=== PATIENT | male | born 1960 | race Caucasian/White ===

== ENCOUNTER 2021-06-23 10:40 | Emergency (ER) | payer MEDICARE ==
[2021-06-23 11:17] LABS: BASOPHIL 0.4 % (0-2); EOSINOPHIL 0.2 % (0-5); HCT 41.8 % (42.0-52.0); HGB 13.8 g/dl (13.2-18.0); LYMPHOCYTE 36.1 % (15-48); MCH 29.3 pg (25.0-31.0); MCV 88.7 fL (78.0-100.0); MONOCYTE 10.6 % (0-12); NEUTROPHIL 51.5 % (41-80); NRBC 0; PLT 222 K/uL (150-400); RBC 4.71 M/uL (4.70-6.00); RDW 12.2 % (11.5-14.0)
[2021-06-23 11:28] LABS: ALBUMIN 3.3 g/dL (3.4-5.0); BILIRUBIN - TOTAL 0.3 mg/dL (0.2-1.0); BUN/CREAT RATIO (CALC) 6.8 RATIO; CREATININE 0.74 mg/dL (0.67-1.17); GLOBULIN (CALCULATION) 3.6 g/dL; POTASSIUM 3.9 mmol/L (3.5-5.1); TOTAL PROTEIN 6.9 g/dL (6.4-8.2)
[2021-06-23] MEDS ORDERED: PREDNISONE 20MG20 MG PO (15:12)
[2021-06-23] MEDS ORDERED: COMBIVENT RESPIM4 GM PO (15:12)
== END 2021-06-23 15:40 | disposition home or self-care (01) ==
LOC: FER 10:40
PROVIDERS: Internal Medicine
DX: U07.1 COVID-19 (principal); J44.1 Chronic obstructive pulmonary disease with (acute) exacerbation; F17.210 Nicotine dependence, cigarettes, uncomplicated
CPT/HCPCS: 36415; 71045; 80053; 85025; 94640; 94664; J2930; M0243; Q0244; U0002